=== PATIENT | female | born 1990 | race Caucasian/White ===

== ENCOUNTER → 2016-11-17 | Outpatient (CLI) | payer OTHER ==
[~2016-11-17] MED LIST: HYDROCODON-ACE1 EAC7 PO; IBUPROFEN800 MG PO; MACROBID100 MG PO; Motrin PO; ONDANSETRON ODT8 MG PO; PROMETHAZINE HC25 M1 PO; Percocet 5/325,Endoc PO; ZANTAC150 MG PO; ZOFRAN ODT8 MG PO; ZOFRAN4 MG PO; no home meds
== END | disposition home or self-care (01) ==
LOC: RAD 13:00
PROC: BU12YZZ Fluoroscopy of Bilateral Fallopian Tubes using Other Contrast (ICD-10-PCS; principal; 2016-11-17)
DX: Z51.89 Encounter for other specified aftercare (principal); Z98.51 Tubal ligation status
CPT/HCPCS: 74740